=== PATIENT | female | born 1970 | race Caucasian/White ===

== ENCOUNTER 2020-08-10 10:38 | Emergency (ER) | payer OTHER, SELFPAY ==
[2020-08-10 10:38] VITALS: BP 120/86; PULSE 90; RESP 16; TEMP 36.1; O2SAT 100; BMI 21.7
--- NOTE | 2020-08-10 10:56 | EKG12_ITS ---
Test Reason : CP Blood Pressure : / mmHG Vent. Rate : 067 BPM Atrial Rate : 067 BPM P-R Int : 166 ms QRS Dur : 072 ms QT Int : 380 ms P-R-T Axes : 073 060 071 degrees QTc Int : 401 ms Normal sinus rhythm Low voltage QRS (Limb Leads) Confirmed by JEAN MARIE MANN, NADER ([id number]), development editor RADHA MURPHY ([id number]) on 08/12/2020 8:16:35 AM Referred By: KANU Confirmed By:NADER AJ MD
[2020-08-10] MEDS: Ketorolac 15 MG/ML Vial IV (11:11)
[2020-08-10 11:29] LABS: Absolute Lymphocyte Count 2.11 X10^3/uL (0.83-4.51); Absolute Neutrophil Count 3.4 X10^3/uL (2.0-7.7); Basophil# 0.03 X10^3/uL; Basophil% 0.5 % (0-1); Eosinophil# 0.11 X10^3/uL; Eosinophils% 1.8 % (0-5); Hematocrit 43.1 % (37-47); Hemoglobin 14.9 g/dL (12.0-15.0); Lymphocyte # 2.11 X10^3/ul (4.0); Lymphocyte % 34.7 % (19-41); Mean Corp Hgb Conc 34.6 g/dL (32-36); Mean Corpuscular Volume 95.4 fL (81-99); Mean Platelet Vol. 9.9 fl (6.2-12.0); Monocyte# 0.41 X10^3/uL; Monocyte% 6.7 % (0-10); NRBC Flagged by Analyzer 0 % (0-5); Neutrophil # 3.41 X10^3/uL (2.7-7.7); Neutrophil % 56.1 % (47-70); Platelet Count 267 K/mm3 (150-450); RBC Distribution Width CV 12.6 % (11.6-14.6); RBC Distribution Width SD 43.9 fl (35.1-43.9); Red Blood Count 4.52 M/mm3 (4.2-5.4); White Blood Count 6.1 K/mm3 (4.4-11.0)
[2020-08-10 11:31] VITALS: BP 128/76; PULSE 69; RESP 12; O2SAT 99
--- NOTE | 2020-08-10 11:40 | RAD_ITS ---
STUDY: X-RAY CHEST REASON FOR EXAM: Female, 50 years old. Chest pain x 1 week TECHNIQUE: PA and lateral views of the chest. COMPARISON: None. FINDINGS: EKG electrodes are seen. Hyperinflation. The lungs are clear. There is no demonstrated pleural abnormality. Normal size heart. Normal mediastinum and robert. Normal visualized pulmonary arteries. Normal visualized aortic arch and descending thoracic aorta. Normal visualized thoracic spine. Normal visualized ribs, clavicles, and shoulders. There is no demonstrated abnormality of the visualized soft tissue structures of the upper abdomen. RAD/Chest PA and Lateral IMPRESSION: Hyperinflation. Electronically Signed: Harish Echols, at 12:31 EST , Service support ,
[2020-08-10 11:48] LABS: Anion Gap 3 (5-15); BUN 13 mg/dL (7-18); BUN/Creat Ratio 16.5 RATIO (10-20); Calcium,Total 9.4 mg/dL (8.5-10.1); Chloride 108 mmol/L (98-107); Creatinine, Serum 0.79 mg/dL (0.55-1.02); EST Glomerular Filtration Rate 82 mL/min (>60); Est Glom Filt Rate - Afr Amer 100 mL/min (>60); Estimated Creatinine Clearance 80.64 ml/min; Glucose 84 mg/dL (74-106); Potassium 3.7 mmol/L (3.5-5.1); Sodium Level 140 mmol/L (136-145)
[2020-08-10 11:56] LABS: D-Dimer Quantitative (DVT/PE) <= 0.27 FEU/ug/m (0.27-0.49)
--- NOTE | 2020-08-10 12:33 | ED.VIS.CHEST ---
History of Present Illness Chief Complaint: Chest Pain Informant: Patient Narrative: Patient presenting for evaluation secondary to chest pain. Patient states that over the course of about the last week she has been dealing with chest pain. Initially was located centrally in her chest, now it really wraps around the entirety of the left side of her chest and is a very sharp type pain that is worse with laying flat as well as movement and palpation. Patient states that the pain is severe enough that it is causing her some shortness of breath but she denies any exertional component to this. Patient was seen at a outside facility emergency department had x-rays, and was discharged with the likely diagnosis of this being musculoskeletal. Patient states however she is having persistent pain that seems to be somewhat worsening. Patient does endorse that she suffered a fall but this was multiple days prior to the start of the pain, and was associated with a fall on her left shoulder. Patient denies significant medical history, denies any history of DVT or PE. Past Medical History - Allergies and Home Meds Allergies/Adverse Reactions: Allergies No Known Allergies Allergy (Verified 08/10/20 10:38) Primary Care Physician: Care Physician,No Primary [Primary Care Provider] - Prior records reviewed: Yes Past Medical History: None Smoking Status: Current every day smoker Review of Systems All systems negative except as indicated General: Denies: Chills, Fever, Sweats Eyes: Denies: Visual changes - bilaterally, Diplopia ENT: Denies: Rhinorrhea, Sore throat Cardiovascular: Reports: Chest pain Respiratory: Denies: Dyspnea, Cough, Dyspnea on exertion Gastrointestinal: Denies: Abdominal pain, Nausea, Vomiting, Diarrhea, Melena, Hematochezia Genitourinary: Denies: Dysuria, Hematuria, Frequency Musculoskeletal: Denies: Back pain, Extremity Pain Skin: Denies: Rash, Wounds Neurological: Denies: Headache, Weakness, Numbness Physical Exam Vital Signs/Narrative: Vital Signs Temp Pulse Resp BP Pulse Ox 08/10/20 11:31 69 12 128/76 H 99 08/10/20 10:38 97.0 F L 90 16 120/86 H 100 Inital Vital Signs reviewed: Yes General: Well nourished, Well developed, No Acute Distress Head: Normocephalic, Atraumatic Eyes: Perrl, EOMI ENT: Moist mucous membranes, No rhinorrhea Neck: Supple, Nontender Cardiovascular: Regular rate, Regular rhythm, No murmurs Respiratory: No distress, CTA bilaterally, Chest tenderness - Reproducible at the left side of the patient's sternum, no signs of deformity Abdomen: Soft, Nontender, Nondistended, Normal bowel sounds Back: Nontender, Normal Inspection Extremities: Nontender, No edema Skin: Normal color, No rash Neurological: Alert, Oriented x3, Cranial nerves II-XII grossly intact, Normal Strength, Normal Sensation Psychological: Normal affect, Normal Mood Diagnostic/Tx/Re-eval Chest X-Ray - ED: 2 View, Read by ED Physician, Normal Clinical Impression(s) from Imaging Studies Chest X-Ray 08/10/20 11:40 IMPRESSION: Hyperinflation. Electronically Signed: Harish Onesimo, at 12:31 EST , Service support , Laboratory Data 08/10/20 08/10/20 08/10/20 11:10 11:10 11:10 WBC 6.1 RBC 4.52 Hgb 14.9 Hct 43.1 MCV 95.4 MCH 33.0 H MCHC 34.6 RDW Std Deviation 43.9 RDW Coeff of Kamran 12.6 Plt Count 267 MPV 9.9 Immature Gran % (Auto) 0.200 Neut % (Auto) 56.1 Lymph % (Auto) 34.7 [place] % (Auto) 6.7 Eos % (Auto) 1.8 Baso % (Auto) 0.5 Absolute Neuts (auto) 3.4 Absolute Lymphs (auto) 2.11 Nucleated RBC % 0 D-Dimer Quant (PE/DVT) <= 0.27 Sodium 140 Potassium 3.7 Chloride 108 H Carbon Dioxide 29.0 Anion Gap 3 L BUN 13 Creatinine 0.79 Estim Creat Clear Calc 80.64 Est GFR (MDRD) Af Amer 100 Est GFR (MDRD) Non-Af 82 BUN/Creatinine Ratio 16.5 Glucose 84 Calcium 9.4 Troponin I < 0.015 - Medical Decision Making Patient presenting for evaluation secondary to chest pain. This was clearly reproducible, but the patient already had negative x-rays and is for all intents and purposes a bounce back so work-up was obtained. CBC chemistry troponin and D-dimer found to be unremarkable. PA and lateral chest x-ray by my personal review as well as radiology is negative for acute cardiopulmonary or bony pathology. EKG found to be unremarkable. Patient has reproducible pain, she was given Toradol in the emergency department. This likely is from costochondritis, patient potentially will benefit from a course of steroids. She will be discharged with a Medrol pack. ED Disposition - Plan for ED Patient: Disposition: Home or Assisted Living Diagnosis: Costochondritis, acute Instructions: ED Chest Wall Pain, Costochondritis Prescriptions: MethylPREDNISolone DosePak [Medrol DosePak] 4 mg PO UD #1 box Prescription Printed Additional Instructions: Follow-up with your primary care physician
--- NOTE | 2020-08-10 12:44 | ED.DEP ---
ED Disposition - Plan for ED Patient: Disposition: Home or Assisted Living Diagnosis: Costochondritis, acute Instructions: ED Chest Wall Pain, Costochondritis Prescriptions: MethylPREDNISolone DosePak [Medrol DosePak] 4 mg PO UD #1 box Prescription Printed Additional Instructions: Follow-up with your primary care physician
[2020-08-10 12:50] VITALS: BP 107/74; PULSE 67; RESP 19; O2SAT 98
== END 2020-08-10 12:50 | disposition home or self-care (01) ==
PROVIDERS: Emergency Provider Emergency Medicine
DX: M94.0 Chondrocostal junction syndrome [Tietze] (principal); F17.200 Nicotine dependence, unspecified, uncomplicated
CPT/HCPCS: 71046; 80048; 84484; 85025; 85379; 93005; 96374; 99284

== ENCOUNTER 2022-10-24 08:47 | Emergency (ER) | payer OTHER, SELFPAY ==
[2022-10-24 08:48] VITALS: BP 119/77; PULSE 78; RESP 14; TEMP 36.6; O2SAT 100; BMI 21.6
--- NOTE | 2022-10-24 09:02 | CT_ITS ---
EXAM: CT ABDOMEN AND PELVIS WITHOUT INTRAVENOUS CONTRAST CLINICAL INDICATION: flank pain TECHNIQUE: Helically acquired images were obtained of the abdomen and pelvis without intravenous contrast. This CT exam was performed using one or more of the following dose reduction techniques: automated exposure control, adjustment of the mA and/or kV according to patient size, and/or use of iterative reconstruction technique. This report was created using [employer] report generation technology. COMPARISON: None. FINDINGS: LOWER THORAX: Normal. Lung bases are clear. No cardiomegaly. No pericardial effusion. ABDOMEN: LIVER: Normal. Homogeneous. GALLBLADDER AND BILE DUCTS: Normal. No calcified gallstones. No gallbladder distention or wall edema. No intra- or extrahepatic biliary ductal dilation. PANCREAS: Normal. No focal cystic mass. SPLEEN: Normal. Normal size without focal cystic or solid mass. ADRENALS: Normal. No nodules. KIDNEYS AND URETERS: 3 mm distal left ureteral stone noted adjacent to the ureterovesical junction associated with distended left renal collecting system. No intrarenal stone. STOMACH AND BOWEL: Normal. No bowel distention. No focal inflammatory change. PELVIS: APPENDIX: Appendix is visualized and normal in appearance. BLADDER: Urinary bladder is contracted. REPRODUCTIVE: Uterus is absent. ABDOMEN and PELVIS: INTRAPERITONEAL SPACE: Normal. No ascites or other fluid collection. No free air. BONES/JOINTS: No suspicious lytic or blastic abnormality. SOFT TISSUES: Normal. No discrete abdominal or pelvic wall hernia. VASCULATURE: Normal. Abdominal aorta is non-dilated. LYMPH NODES: Normal. No enlarged lymph nodes. CT/Abdomen/Pelvis without Cont IMPRESSION: Obstructive 3 mm distal left ureteral stone. Electronically Signed: Dread Leger MD at 9:45 EDT ,
--- NOTE | 2022-10-24 09:03 | EDS_ITS ---
HPI History of Present Illness Chief Complaint: Abd Pain Informant: patient Onset/Context/Timing Onset: Weeks (1 week) Context: Gradual Onset Timing: Waxes and wanes Current Severity: Moderate Maximum Severity: Severe Narrative Narrative: Patient presents with 1 week history of abdominal pain. She points to the subxi phoid area down to her pubis. She reports urinary urgency and having to urinate about every 1/2 hour. She does not feel that she is emptying her bladder. She was seen at a local urgent care a few days ago. She states that she was told there was blood in her urine but no sign of infection. They gave her Keflex anyway and sent a urine culture. Patient has noted no improvement. This morning she woke up with left flank pain. She has not noted fever or chills. No vomiting or diarrhea. PFSH PFSH Medical History no medical history no medical history Home Medications diphenhydramine HCl 25 mg capsule 25 - 50 mg PO QHS sleep 08/10/20 [History Last Taken Unknown] methylprednisolone 4 mg tablets in a dose pack 4 mg PO UD ##1 08/10/20 [Rx Last Taken Unknown] hydrocodone-acetaminophen 5-325mg 5mg-325mg 1 tab PO Q6H PRN PRN Pain 3 days #10 TABLETS 10/24/22 [Rx Last Taken Unknown] ketorolac 10 mg tablet 10 mg PO Q8H PRN pain #10 tabs 10/24/22 [Rx Last Taken Unknown] ondansetron 4 mg disintegrating tablet 4 mg PO Q8H PRN PRN Nausea #10 tabs 10/24/22 [Rx Last Taken Unknown] Allergy/AdvReac Type Severity Reaction Status Date / Time No Known Allergies Allergy Verified 10/24/22 08:50 Surgical History History of partial hysterectomy Social History Smoking Status: Current every day smoker tobacco type: cigarettes ROS ROS ED Constitutional Constitutional ED: Denies chills or fever(s) Eyes Eyes: Denies change in vision or discharge from eye(s) ENT ENT ED: Denies discharge from eye(s), rhinorrhea or sore throat Cardiovascular Cardiovascular: Denies chest pain or palpitations Respiratory/Chest Respiratory/Chest: Denies cough or dyspnea Gastrointestinal Gastrointestinal: Reports abdominal pain; Denies diarrhea, nausea or vomiting Genitourinary Genitourinary ED: Reports difficulty urinating and urinary frequency Musculoskeletal Musculoskeletal: Reports back pain; Denies extremity pain Integumentary Denies Abrasions or rash Neurologic Neurologic: Denies headache(s) or weakness Psychiatric Psychiatric: Denies anxiety or depression Allergic/Immunologic Allergic/Immunologic ED: Denies lip swelling or urticaria EXAM Physical Exam Const Vital Signs: 10/24/22 08:48 Temperature 97.9 F Temperature Source Temporal Pulse Rate 78 Respiratory Rate 14 Blood Pressure 119/77 Blood Pressure Mean 91 Pulse Ox 100 Oxygen Delivery Method Room Air Positive well nourished and well developed General Appearance ED: well developed HEENT Reports normocephalic and head/scalp atraumatic Eyes PERRL and EOMs intact bilaterally Neck supple Chest Wall inspection of chest normal and palpation of chest normal Resp normal respiratory effort and clear to auscultation bilaterally Cardio regular rate and regular rhythm GI GI Narrative: Mild lower abdominal tenderness palpation. No guarding or rebound. Auscultation: hypoactive bowel sounds Palpation: soft Back/Spine no CVA tenderness Extremity normal to inspection Neuro oriented x3 and no sensory deficits noted Sensorium / Orientation: alert Motor Exam: strength 5/5 throughout Psych mental status grossly normal Skin no rashes or lesions noted MDM MDM MDM Narrative Medical decision making narrative: Patient was given Dilaudid, Zofran, IV fluids. Labwork obtained to evaluate for leukocytosis, anemia, and electrolyte derangement. Urinalysis obtained to evaluate for infection/hematuria. CT scan of the flank obtained to evaluate for possible kidney stone. Lab Data Attestation: I reviewed the patient's lab results. Labs: Laboratory Results - last 24 hr 10/24/22 10/24/22 10/24/22 09:05 09:10 09:10 WBC 10.1 RBC 4.51 Hgb 14.9 Hct 43.7 MCV 96.9 MCH 33.0 H MCHC 34.1 RDW Std Deviation 47.6 H RDW Coeff of Kamran 13.2 Plt Count 263 MPV 10.1 Immature Gran % (Auto) 0.300 Neut % (Auto) 64.4 Lymph % (Auto) 28.2 [place] % (Auto) 5.5 Eos % (Auto) 1.3 Baso % (Auto) 0.3 Absolute Neuts (auto) 6.5 Absolute Lymphs (auto) 2.84 Nucleated RBC % 0 Sodium 141 Potassium 3.8 Chloride 111 H Carbon Dioxide 29.0 Anion Gap 1 L BUN 10 Creatinine 0.83 Estim Creat Clear Calc 75.07 Est GFR (MDRD) Af Amer 94 Est GFR (MDRD) Non-Af 77 BUN/Creatinine Ratio 12.1 Glucose 79 Calcium 9.2 Total Bilirubin 0.30 Direct Bilirubin 0.10 AST 17 ALT 25 Alkaline Phosphatase 106 Total Protein 7.6 Albumin 3.8 Globulin 3.8 Urine Color Yellow Urine Clarity Clear Urine pH 6.0 Ur Specific [place] 1.010 Urine Protein Negative Urine Glucose (UA) Normal Urine Ketones Negative Urine Occult Blood 25 H Urine Nitrite Negative Urine Bilirubin Negative Urine Urobilinogen Normal Ur Leukocyte Esterase Negative Urine RBC 0 SEEN Urine WBC 0 SEEN Ur Squamous Epith Cells 0 SEEN Urine Bacteria 0 SEEN Urine Mucus 0 SEEN Radiography Diagnostic Testing: Clinical Impression(s) from Imaging Studies Abdomen/Pelvis CT 10/24/22 09:02 IMPRESSION: Obstructive 3 mm distal left ureteral stone. Electronically Signed: Dread Leger MD at 9:45 EDT , Differential Diagnosis Abdominal Pain: UTI Reason(s) UTI less likely: no evidence of infection on urinalysis Differential Diagnosis: Ovarian cyst Why less likely: No evidence of ovarian abnormality on imaging. Treatment and Re-Evaluation :: CBC and chemistry studies are unremarkable. Renal function is normal. Urinalysis reveals no sign of acute infection. CT flank reveals a 3 mm distal left ureter stone. Following CT read, patient is ordered 30 mg of IV Toradol. Test results are discussed with patient and at bedside. I do anticipate she will be able to pass the stone. She will be given analgesics for home. Return instructions given. Discharge Plan Triage Chief Complaint: Abd Pain ED Provider: Gisele Stewart Dx/Rx/DC Orders Clinical Impression: Kidney stone Instructions: ED Kidney Stone w/ Colic Prescriptions: New hydrocodone-acetaminophen 5-325 mg tablet 1 tab PO Q6H PRN PRN (Reason: Pain) 3 Days Qty: 10 0RF ondansetron 4 mg tablet,disintegrating 4 mg PO Q8H PRN PRN (Reason: Nausea) Qty: 10 0RF ketorolac 10 mg tablet 10 mg PO Q8H PRN (Reason: pain) Qty: 10 0RF No Action diphenhydramine HCl 25 MG capsule 25 - 50 mg PO QHS methylprednisolone 4 MG tablets,dose pack 4 mg PO UD Qty: 1 0RF Primary Care Provider: Care Physician,No Primary Referrals: Claudette Dewey MD [Med Staff - Active Staff] - 3-5 Days if not improving Care Physician,No Primary [Primary Care Provider] - Disposition Disposition: Home, Self Care
[2022-10-24] MEDS: HYDROmorphone 1 MG/ML Syringe 0.5 MG IV (09:09)
[2022-10-24] MEDS: Ondansetron 4 MG/2 ML Vial IV (09:09)
[2022-10-24] MEDS: 0.9% Normal Saline 1,000 ML 150 ML IV (09:10)
[2022-10-24 09:14] LABS: Bacteria 0 SEEN /hpf (None Seen); Mucous, Urine 0 SEEN /hpf (<or=2+); Red Blood Cells-Urine 0 SEEN /hpf (0-5); Squamous Epithelial Cells - UA 0 SEEN /hpf (5-10); White Blood Cells 0 SEEN /hpf (0-5)
[2022-10-24 09:15] LABS: Color, Urine Yellow (Yellow); Glucose, Dipstick Normal (Normal); Ketone-Dipstick Negative (Negative); Leukocyte Esterase-Dipstick Negative /ul (Negative); Nitrite-Dipstick Negative (Negative); Occult Blood-Urine 25 /ul (Negative); Protein-Dipstick Negative (Negative); Urine Bilirubin Dipstick Negative (Negative); Urine Clarity Clear (Clear); Urine Urobilinogen Normal (Normal)
[2022-10-24 09:22] LABS: Absolute Lymphocyte Count 2.84 X10^3/uL (0.83-4.51); Absolute Neutrophil Count 6.5 X10^3/uL (2.0-7.7); Basophil# 0.03 X10^3/uL; Basophil% 0.3 % (0-1); Eosinophil# 0.13 X10^3/uL; Eosinophils% 1.3 % (0-5); Hematocrit 43.7 % (37-47); Hemoglobin 14.9 g/dL (12.0-15.0); Lymphocyte # 2.84 X10^3/ul (0.83-4.51); Lymphocyte % 28.2 % (19-41); Mean Corp Hgb Conc 34.1 g/dL (32-36); Mean Corpuscular Volume 96.9 fL (81-99); Mean Platelet Vol. 10.1 fl (6.2-12.0); Monocyte# 0.55 X10^3/uL; Monocyte% 5.5 % (0-10); NRBC Flagged by Analyzer 0 % (0-5); Neutrophil # 6.49 X10^3/uL (2.7-7.7); Neutrophil % 64.4 % (47-70); Platelet Count 263 K/mm3 (150-450); RBC Distribution Width CV 13.2 % (11.6-14.6); RBC Distribution Width SD 47.6 fl (35.1-43.9); Red Blood Count 4.51 M/mm3 (4.2-5.4); White Blood Count 10.1 K/mm3 (4.4-11.0)
[2022-10-24 09:40] LABS: AST(SGOT) 17 U/L (15-37); Alanine Aminotransfer ALT/SGPT 25 U/L (13-56); Albumin, Serum 3.8 g/dL (3.2-5.0); Alkaline Phosphatase 106 U/L (45-117); Anion Gap 1 (5-15); BUN 10 mg/dL (7-18); BUN/Creat Ratio 12.1 RATIO (10-20); Calcium,Total 9.2 mg/dL (8.5-10.1); Chloride 111 mmol/L (98-107); Creatinine, Serum 0.83 mg/dL (0.55-1.02); EST Glomerular Filtration Rate 77 mL/min (>60); Est Glom Filt Rate - Afr Amer 94 mL/min (>60); Estimated Creatinine Clearance 75.07 ml/min; Globulin 3.8 g/dL (2.2-4.2); Glucose 79 mg/dL (74-106); Potassium 3.8 mmol/L (3.5-5.1); Protein, Total 7.6 g/dL (6.4-8.2); Sodium Level 141 mmol/L (136-145)
[2022-10-24] MEDS: Ketorolac 30 MG/ML Syringe IV (10:26)
[2022-10-24 10:52] VITALS: BP 120/72; PULSE 74; RESP 16; TEMP 36.6; O2SAT 99
== END 2022-10-24 10:59 | disposition home or self-care (01) ==
PROVIDERS: Emergency Provider Emergency Medicine; Visit Provider Emergency Medicine
DX: N20.1 Calculus of ureter (principal); F17.210 Nicotine dependence, cigarettes, uncomplicated
CPT/HCPCS: 74176; 80048; 80076; 81001; 85025; 99283; J7030; A4216; J2405

== ENCOUNTER → 2022-11-28 | Outpatient (CLI) | payer OTHER, SELFPAY ==
--- NOTE | 2022-11-28 07:51 | CT_ITS ---
STUDY: CT ABDOMEN AND PELVIS WITHOUT CONTRAST REASON FOR EXAM: Female, 52 years old. KIDNEY STONES. Left flank pain. RADIATION DOSAGE (If Supplied By Facility): CTDIvol = ( 6.07 ) mGy, DLP = ( 277.62 ) mGycm TECHNIQUE: Transaxial images were obtained from the dome of the diaphragm to the symphysis pubis without oral contrast, and without intravenous contrast. Sagittal and coronal images were reconstructed. Individualized dose optimization techniques were used for this CT. COMPARISON: Comparison is made with prior study of October 24, 2022. FINDINGS: The visualized lung bases are unremarkable. The visualized portions of the heart are within normal limits. Normal liver. Normal gallbladder and extrahepatic biliary system. Normal spleen. Normal pancreas. Normal bilateral adrenal glands. Normal right kidney. Normal left kidney. Normal visualized stomach. Normal small intestine. Normal colon. The appendix is visualized and appears normal. There is scattered atherosclerotic calcification of the abdominal aorta, without a demonstrated aneurysm. Normal inferior vena cava. Normal retroperitoneum. Normal urinary bladder. There is absence of the uterus consistent with a prior hysterectomy. Normal abdominal wall. There are degenerative changes of the visualized lumbar spine. CT/Abdomen/Pelvis without Cont IMPRESSION: Normal unenhanced CT of the abdomen and pelvis. Electronically Signed: Harish Echols MD at 10:21 EDT ,
== END | disposition home or self-care (01) ==
LOC: CT 07:49
PROVIDERS: Referring Provider Urology; Visit Provider Urology
DX: N20.1 Calculus of ureter (principal)
CPT/HCPCS: 74176

== ENCOUNTER 2024-02-03 20:51 | Emergency (ER) | payer OTHER, SELFPAY ==
[2024-02-03 20:52] VITALS: BP 126/79; PULSE 72; RESP 18; TEMP 35.9; O2SAT 100; BMI 20.5
--- NOTE | 2024-02-03 21:05 | EKG12_ITS ---
Test Reason : CP/SOB Blood Pressure : / mmHG Vent. Rate : 067 BPM Atrial Rate : 067 BPM P-R Int : 164 ms QRS Dur : 068 ms QT Int : 396 ms P-R-T Axes : 078 014 063 degrees QTc Int : 418 ms Normal sinus rhythm Normal ECG Confirmed by Flaco Victoria ([id number]), editorial assistant DHIRAJ HERNANDES ([id number]) on 02/05/2024 1:46:21 PM Referred By: ALEXIS Confirmed By:Flaco Victoria
--- NOTE | 2024-02-03 21:06 | CT_ITS ---
STUDY: CTA CHEST REASON FOR EXAM: Female, 53 years old. chest pain RADIATION DOSAGE (If Supplied By Facility): CTDIvol = ( 10.28 ) mGy, DLP = ( 230.96 ) mGycm TECHNIQUE: The examination was performed with the intravenous administration of IV 100mL Isovue-370. Post-processing of the angiographic images was performed, with multiplanar reformation and 3D reconstruction. The protocol utilizes one or more of the following dose reduction techniques: automated exposure control, adjustment of mA and/or kV according to patient size,and/or use of iterative reconstruction technique. COMPARISON: FINDINGS: Normal enhancement of the main pulmonary artery and right and left pulmonary arteries. Normal enhancement of the bilateral peripheral pulmonary arteries. There is no demonstrated pulmonary embolism. Normal thoracic aorta and visualized great vessels. There is no demonstrated aortic dissection. Normal heart and pericardium. Normal mediastinum. Normal hilar regions. Normal visualized trachea and bronchi. The lungs are well expanded. Normal pulmonary parenchyma. Normal pleura. Normal chest wall structures. Normal osseous structures. Normal visualized upper abdomen. CT/CTA Chest W/WO Contrast IMPRESSION: Normal CTA chest examination, without a demonstrated pulmonary embolism or arterial dissection. Electronically Signed: Sameer Ahuja DO at 23:01 EDT ,
[2024-02-03] MEDS: Ipratropium/Albuterol Sulfate 3 ML AMPUL.NEB INHALATION (21:11)
[2024-02-03 21:12] VITALS: PULSE 77; RESP 18
[2024-02-03 21:20] LABS: Absolute Lymphocyte Count 2.74 X10^3/uL (0.83-4.51); Absolute Neutrophil Count 6.5 X10^3/uL (2.0-7.7); Basophil# 0.06 X10^3/uL; Basophil% 0.6 % (0-1); Eosinophil# 0.17 X10^3/uL; Eosinophils% 1.7 % (0-5); Hematocrit 42.8 % (37-47); Hemoglobin 14.3 g/dL (12.0-15.0); Lymphocyte # 2.74 X10^3/ul (0.83-4.51); Lymphocyte % 27.4 % (19-41); Mean Corp Hgb Conc 33.4 g/dL (32-36); Mean Corpuscular Hgb 31.9 pg (27.0-32.0); Mean Corpuscular Volume 95.5 fL (81-99); Monocyte# 0.56 X10^3/uL; Monocyte% 5.6 % (0-10); NRBC Flagged by Analyzer 0 % (0-5); Neutrophil # 6.45 X10^3/uL (2.7-7.7); Neutrophil % 64.4 % (47-70); Platelet Count 258 K/mm3 (150-450); RBC Distribution Width CV 13.3 % (11.6-14.6); RBC Distribution Width SD 47.1 fl (35.1-43.9); Red Blood Count 4.48 M/mm3 (4.2-5.4)
[2024-02-03 21:41] LABS: Anion Gap 5 (5-15); BUN 15 mg/dL (7-18); BUN/Creat Ratio 19.1 RATIO (10-20); Calcium,Total 9.3 mg/dL (8.5-10.1); Chloride 105 mmol/L (98-107); Creatinine, Serum 0.79 mg/dL (0.55-1.02); EST Glomerular Filtration Rate 82 mL/min (>60); Est Glom Filt Rate - Afr Amer 99 mL/min (>60); Estimated Creatinine Clearance 76.05 ml/min; Glucose 113 mg/dL (74-106); Potassium 3.8 mmol/L (3.5-5.1); Sodium Level 138 mmol/L (136-145); Troponin-I HS 4 pg/mL (3.0-54.0)
--- NOTE | 2024-02-03 21:50 | EDS_ITS ---
HPI <TERRI Sequeira - Last Filed: 02/03/24 21:56> History of Present Illness Chief Complaint: Shortness of Breath Narrative Narrative: 53-year-old female smokes 1 pack/day and states over the last month she has had an increase in her chronic smoker's cough. About a week ago she went to urgent care and states she had a normal chest x-ray but they heard crackles in her lungs. They prescribed amoxicillin and prednisone for bronchitis. The day after this, 1 week ago, she flew to [place] and flew back today. She states she was still coughing some while there and was occasionally short of breath. Today she had a 7-hour flight then another 2-hour flight and after getting home around 1:30 PM [place] time she developed sharp left-sided chest pain. It hurts under her left breast with taking a deep breath. She denies leg pain or swelling. No history of DVT/PE. PFSH <TERRI Sequeira - Last Filed: 02/03/24 21:56> [facility] Home Medications ?Medication ?Instructions ?Recorded ?Last Taken ?Type oxycodone-acetaminophen 5 mg-325 1 tab PO Q4H PRN pain 4 days #14 02/03/24 Unknown Rx mg tablet (Percocet) tabs prednisone 20 mg tablet 40 mg (2 x 20 mg) PO DAILY 7 days 02/03/24 Unknown Rx #14 tabs Allergy/AdvReac Type Severity Reaction Status Date / Time No Known Allergies Allergy Verified 02/03/24 20:55 Surgical History History of partial hysterectomy Social History Smoking Status: Current every day smoker tobacco type: cigarettes ROS <TERRI Sequeira - Last Filed: 02/03/24 21:56> ROS ED ROS Narrative Constitutional: Negative for fever, chills, malaise. CVS: Positive for chest pain. Negative for palpitations, syncope. Respiratory: Positive for shortness of breath, cough. GI: Negative for abdominal pain, nausea, vomiting. EXAM <TERRI Sequeira - Last Filed: 02/03/24 21:56> Physical Exam Narrative Exam Narrative: CONST: Patient sitting in no acute distress. EYES: Normal inspection. NECK: Normal inspection. RESP: No respiratory distress, mild expiratory wheeze throughout. CVS: Regular rate and rhythm, no murmur, no gallop. Back: Normal inspection, no CVA tenderness. SKIN: Color normal, no rash, warm, dry, intact. EXTREMITIES: Normal appearance, no pedal edema, no calf tenderness. NEURO: Alert and answering questions appropriately. PSYCH: Normal affect. Const Vital Signs: 02/03/24 20:52 02/03/24 21:12 02/03/24 21:35 Temperature 96.7 F L Temperature Source Temporal Pulse Rate 72 77 Respiratory Rate 18 18 Respiratory Effort Normal Non-Labored Respiratory Depth Normal Respiratory Pattern Normal Normal Blood Pressure 126/79 H Blood Pressure Mean 94 Pulse Ox 100 Oxygen Delivery Method Room Air Room Air 02/03/24 21:51 02/03/24 23:00 Temperature Temperature Source Pulse Rate 65 71 Respiratory Rate 14 21 H Respiratory Effort Respiratory Depth Respiratory Pattern Blood Pressure 112/63 125/75 H Blood Pressure Mean 79 91 Pulse Ox 99 99 Oxygen Delivery Method Room Air Room Air <Dr. Enoch Ortiz MD - Last Filed: 02/03/24 23:17> Physical Exam Const Vital Signs: 02/03/24 20:52 02/03/24 21:12 02/03/24 21:35 Temperature 96.7 F L Temperature Source Temporal Pulse Rate 72 77 Respiratory Rate 18 18 Respiratory Effort Normal Non-Labored Respiratory Depth Normal Respiratory Pattern Normal Normal Blood Pressure 126/79 H Blood Pressure Mean 94 Pulse Ox 100 Oxygen Delivery Method Room Air Room Air 02/03/24 21:51 02/03/24 23:00 Temperature Temperature Source Pulse Rate 65 71 Respiratory Rate 14 21 H Respiratory Effort Respiratory Depth Respiratory Pattern Blood Pressure 112/63 125/75 H Blood Pressure Mean 79 91 Pulse Ox 99 99 Oxygen Delivery Method Room Air Room Air MDM <TERRI Sequeira - Last Filed: 02/03/24 21:56> [facility] MDM Narrative Medical decision making narrative: History gathered from: Patient and spouse Patient has had recent increased cough and shortness of breath and now after recent travel has left-sided pleuritic chest pain. She appears well and nontoxic. Vital signs are stable. She is speaking in full sentences in no distress and 100% on room air. She has mild expiratory wheezing throughout likely from underlying emphysema. CBC and BMP are WNL. EKG is normal sinus rhythm with no ischemic changes and troponin is 4. CTA is pending. Lab Data Attestation: I reviewed the patient's lab results. Labs: Laboratory Results - last 24 hr 02/03/24 21:10 WBC 10.0 RBC 4.48 Hgb 14.3 Hct 42.8 MCV 95.5 MCH 31.9 MCHC 33.4 RDW Std Deviation 47.1 H RDW Coeff of Kamran 13.3 Plt Count 258 MPV 10.0 Immature Gran % (Auto) 0.300 Neut % (Auto) 64.4 Lymph % (Auto) 27.4 Emanuel % (Auto) 5.6 Eos % (Auto) 1.7 Baso % (Auto) 0.6 Absolute Neuts (auto) 6.5 Absolute Lymphs (auto) 2.74 Nucleated RBC % 0 Sodium 138 Potassium 3.8 Chloride 105 Carbon Dioxide 28.0 Anion Gap 5 BUN 15 Creatinine 0.79 Estim Creat Clear Calc 76.05 Est GFR (MDRD) Af Amer 99 Est GFR (MDRD) Non-Af 82 BUN/Creatinine Ratio 19.1 Glucose 113 H Calcium 9.3 Troponin I High Sens 4 Radiography Diagnostic Testing: Clinical Impression(s) from Imaging Studies Chest CTA 02/03/24 21:06 IMPRESSION: Normal CTA chest examination, without a demonstrated pulmonary embolism or arterial dissection. Electronically Signed: Sameer Ahuja DO at 23:01 EDT Reading Location ID and State: [address] [place] [address] Tel [phone], Service support , EKG Initial EKG: Attestation: I personally reviewed and interpreted this EKG as follows: Interpretation: Sinus Rhythm and No Acute Injury Pattern Comments: Normal sinus rhythm at 67 bpm Normal axis, normal intervals No acute ischemic changes <Dr. Enoch Ortiz MD - Last Filed: 02/03/24 23:17> [facility] Narrative Medical decision making narrative: History gathered from: Patient and spouse Patient has had recent increased cough and shortness of breath and now after recent travel has left-sided pleuritic chest pain. She appears well and nontoxic. Vital signs are stable. She is speaking in full sentences in no distress and 100% on room air. She has mild expiratory wheezing throughout likely from underlying emphysema. CBC and BMP are WNL. EKG is normal sinus rhythm with no ischemic changes and troponin is 4. CTA is pending. I have personally performed a face to face assessment of the patient and have reviewed the TESHA Note. I performed a substantive portion of the visit including all aspects of the following. My mack findings include: History is 53-year-old female recent diagnosis of bronchitis placed on antibiotic and steroid by the urgent care. Recently flew to and from [place] from a trip. And is complaining of coughing with some shortness of breath. Says pleuritic in nature of the chest discomfort. No hemoptysis. No leg pain or swelling. No history of DVT or PE. Exam is [well-appearing 53-year-old female. Vital signs stable afebrile. Pulse ox 100% on room air no signs of hypoxia. H EENT exam unremarkable. Neck nontender JVD. No lymphadenopathy. Lungs clear to auscultation bilaterally. Heart regular rhythm no murmur. Rate about 70. Chest wall and ribs nontender. Abdomen soft nontender. Back nontender. Moving all 4 extremities. Calves are nontender without edema or cords. Radial pulses equal symmetrical. She is awake and alert no focal motor deficits.] Medical Decision Making [53-year-old female may just have a viral URI versus PE due to recent travel and pleuritic pain. Also rule out pneumonia. Screening labs to be obtained and a CTA of her chest.] Other additions or changes: [Patient doing well at 11:09 PM. CAT scan was negative. Labs are unremarkable. She will be discharged home with outpatient follow-up.] Repeat exam patient is doing well at 11:10 PM. I went over test results specifically the CTA which was negative. I think this is viral respiratory infection with some pleurisy. She be placed on prednisone and Percocet for pain. Otherwise Motrin. Lab Data Lab results narrative: CBC normal. White count of 10. H&H 14 and 42. Platelets 258. Electrolytes unremarkable gap 5. Normal BUN and creatinine. Glucose 113. Troponin normal at 4. CT of the chest unremarkable read by myself and the radiologist. No pneumonia. No pneumothorax and no PE or dissection. Labs: Laboratory Results - last 24 hr 02/03/24 21:10 WBC 10.0 RBC 4.48 Hgb 14.3 Hct 42.8 MCV 95.5 MCH 31.9 MCHC 33.4 RDW Std Deviation 47.1 H RDW Coeff of Kamran 13.3 Plt Count 258 MPV 10.0 Immature Gran % (Auto) 0.300 Neut % (Auto) 64.4 Lymph % (Auto) 27.4 Emanuel % (Auto) 5.6 Eos % (Auto) 1.7 Baso % (Auto) 0.6 Absolute Neuts (auto) 6.5 Absolute Lymphs (auto) 2.74 Nucleated RBC % 0 Sodium 138 Potassium 3.8 Chloride 105 Carbon Dioxide 28.0 Anion Gap 5 BUN 15 Creatinine 0.79 Estim Creat Clear Calc 76.05 Est GFR (MDRD) Af Amer 99 Est GFR (MDRD) Non-Af 82 BUN/Creatinine Ratio 19.1 Glucose 113 H Calcium 9.3 Troponin I High Sens 4 Radiography Diagnostic Testing: Clinical Impression(s) from Imaging Studies Chest CTA 02/03/24 21:06 IMPRESSION: Normal CTA chest examination, without a demonstrated pulmonary embolism or arterial dissection. Electronically Signed: Sameer Ahuja DO at 23:01 EDT Reading Location ID and State: [facility] / [place] Tel [phone], Service support , Rhythm Strip Rhythm Strip: Sinus Rhythm Rate: 67 Ectopy: None Discharge Plan Triage Chief Complaint: Shortness of Breath ED Midlevel Provider: Mine Vann ED Provider: Enoch Ortiz Dx/Rx/DC Orders Clinical Impression: Viral URI, Pleurisy Instructions: ED Pleurisy, ED URI, Viral, No Abx (Adult) Prescriptions: New oxycodone-acetaminophen [Percocet] 5-325 mg tablet 1 tab PO Q4H PRN (Reason: pain) 4 Days Qty: 14 0RF prednisone 20 mg tablet 40 mg PO DAILY 7 Days Qty: 14 0RF Primary Care Provider: Care Physician,No Primary Referrals: Oren Santos MD [Med Staff - [employer] Unit Operator] - 1 Week if not improving Care Physician,No Primary [Primary Care Provider] - Activity Restrictions/Additional Instructions: Follow-up with your doctor if not improving. Prednisone daily for the inflammation in your lung. Percocet for pain and/or Motrin. Print Language: Argentine Disposition Disposition: Home, Self Care
[2024-02-03 21:51] VITALS: BP 112/63; PULSE 65; RESP 14; O2SAT 99
[2024-02-03 23:00] VITALS: BP 125/75; PULSE 71; RESP 21; O2SAT 99
[2024-02-03 23:25] VITALS: BP 124/81; PULSE 66; RESP 14; TEMP 36.6; O2SAT 98
[2024-02-03] MEDS: oxyCODONE 5 MG Tablet PO (23:28)
== END 2024-02-03 23:50 | disposition home or self-care (01) ==
PROVIDERS: Physician Assistant; Emergency Provider Emergency Medicine; Visit Provider Emergency Medicine
DX: J06.9 Acute upper respiratory infection, unspecified (principal); R09.1 Pleurisy; F17.210 Nicotine dependence, cigarettes, uncomplicated
CPT/HCPCS: 71275; 80048; 84484; 85025; 93005; 94640; 99284; Q9967; A4216